=== PATIENT | male | born 1980 | race Caucasian/White ===

== ENCOUNTER 2023-07-06 15:26 | Emergency (ER) | payer SELFPAY ==
[~2023-07-06] VITALS: Ht 162.6 cm; Wt 70.5 kg
[2023-07-06 15:41] VITALS: TEMP 98.5; O2SAT 99
[2023-07-06] MEDS: TETANUS, DIPHTHERIA, PERTUSSIS VAC/PF 0.5ML (>10YR OLD) IM ONE (16:50)
[2023-07-06 16:51] VITALS: BP 142/97; PULSE 96; RESP 18
[2023-07-06] MEDS: KETOROLAC 15MG/ML VIAL IV ONE (16:51)
[2023-07-06] MEDS: LIDOCAINE HCL 1% 20ML VIAL (Pyxis) INJ INFIL ONE (17:02)
== END 2023-07-06 18:37 | disposition home or self-care (01) ==
LOC: ER 15:26
DX: S61.012A Laceration without foreign body of left thumb without damage to nail, initial encounter (principal); W27.8XXA Contact with other nonpowered hand tool, initial encounter; Y93.89 Activity, other specified; Y92.89 Other specified places as the place of occurrence of the external cause; Y99.8 Other external cause status
CPT/HCPCS: 73120; 90715; 12001; 90471; 96374; 99284; J1885; J3490; Z7610